=== PATIENT | female | born 1965 | race Caucasian/White ===

== ENCOUNTER → 2016-09-27 | Outpatient (CLI) | payer BC ==
[~2016-09-27] MED LIST: ADVIL200 M1 PO; ALBUTEROL17 G1 IH; BENADRYL25 M1 PO; CIPRO PO; FLAGYL PO; LEVAQUIN750 MG PO; LISINOPRIL10 MG PO; MEDROL DOSEPAK4 MG PO; OMEPRAZOLE20 M2 PO; XANAX0.5 M1 PO; ZYRTEC10 M2 PO
--- NOTE | ~2016-09-27 | CT4 ---
[facility] A Service of [facility] RADIOLOGY TEXT RESULTS PATIENT: AKBAR RAJAN LOCATION: [facility] : 61 UNIT #: [id number] AGE: [address]: Mitali Walters APRN SEX: F ORDER DR: [id number] [facility] [address] [place], [place] [address] [id number] O MR#: [id number] Acc #: [id number] NAME: AKBAR RAJAN : 1965 SEX: F STUDY DATE/TIME: 09/27/2016 16:22 UNIT: [facility] ROOM: STUDY DESCRIPTION: CT Abd and Pelv Wo Cont Attending Physician: Mitali Walters A.P.R.N. Referring Physician: Mitali Walters A.P.R.N. Ordering Physician: Mitali Walters A.P.R.N. Primary Care Physician: Mitali Walters A.P.R.N. MEDICAL IMAGING REPORT This report is preliminary unless electronic signature is present EXAM CT of the abdomen and pelvis without contrast media HISTORY Elevated white count and left lower quadrant pain for 5 days. TECHNIQUE Transaxial imaging of the abdomen and pelvis was performed without contrast and compared to the patient's previous study of 03/27/2016. This CT exam was performed with one or more of the following radiation dose reduction techniques: automatic control, adjustment of mA and/or kV according to patient size, and iterative reconstruction. FINDINGS Lung bases in this patient are clear. There is diffuse hepatic steatosis. Gallbladder is absent. Spleen is not enlarged. The adrenal glands and pancreas are normal. Both right and left kidney are normal. Patient has medina colonic diverticulosis. No dilated or thickened loops of bowel are identified. The patient does have mild inflammation in the colon adjacent to the sigmoid just beyond the juncture with the descending colon. This likely reflects early changes of diverticulitis. No other evidence of diverticulitis or abscess. Uterus is unremarkable. No adnexal masses or fluid collections are seen. Bladder is normal. CONCLUSION 1. Mild inflammation in the colon adjacent to the sigmoid just beyond its juncture with the descending colon consistent with acute uncomplicated diverticulitis. 2. Medina colonic diverticulosis. 3. Hepatic steatosis. Postop changes of prior cholecystectomy. Dictated by... Sp Byrne M.D. [facility] A Service of [facility] RADIOLOGY TEXT RESULTS PATIENT: AKBAR RAJAN LOCATION: [facility] : 61 UNIT #: [id number] AGE: [address]: Mitali Walters APRN SEX: F ORDER DR: THIS IS AN ELECTRONICALLY VERIFIED REPORT Sp Byrne M.D. at 10/01/2016 2:46 PM JACK/fernando TD: 09/27/2016 19:17 JOB #: [id number] MEDICAL IMAGING REPORT Page 1 of 1 COPY
== END | disposition home or self-care (01) ==
LOC: CCAT 16:03
DX: R10.32 Left lower quadrant pain (principal); D72.829 Elevated white blood cell count, unspecified; R10.12 Left upper quadrant pain; R19.7 Diarrhea, unspecified; K52.9 Noninfective gastroenteritis and colitis, unspecified; K76.0 Fatty (change of) liver, not elsewhere classified; K57.30 Diverticulosis of large intestine without perforation or abscess without bleeding
CPT/HCPCS: 74176